=== PATIENT | male | born 1975 | race Caucasian/White ===

== ENCOUNTER 2019-11-01 22:18 | Emergency (ER) | payer OTHER ==
[~2019-11-01] VITALS: Ht 172.7 cm; Wt 98.6 kg
[2019-11-01] MEDS ORDERED: ACETAMINOPHEN 500 MG TABLET ONE (22:30)
--- NOTE | 2019-11-01 22:35 | NUR ---
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
[2019-11-01] MEDS ORDERED: ACETAMINOPHEN 500 MG TABLET PO ONE (23:00)
[2019-11-01 23:34] LABS: RAPID INFLUENZA A Negative (Negative); RAPID INFLUENZA B Negative (Negative)
[2019-11-01] MEDS ORDERED: DEXAMETHASONE 4 MG TABLET ONE (23:46)
[2019-11-02 01:17] VITALS: BP 133/52
== END 2019-11-02 01:19 | disposition home or self-care (01) ==
LOC: ED 11-02 00:03
DX: J20.9 Acute bronchitis, unspecified (principal); R91.8 Other nonspecific abnormal finding of lung field; F17.210 Nicotine dependence, cigarettes, uncomplicated
CPT/HCPCS: 71046; 87400; 93005; 99285; 99406